=== PATIENT | female | born 1990 | race Caucasian/White ===

== ENCOUNTER 2017-09-22 15:21 | Emergency (ER) | payer OTHER, MEDICAID ==
[2017-09-22 16:02] LABS: ADD MAN DIFF? NO
[2017-09-22 16:05] LABS: WHITE BLOOD COUNT 8.5 10^3/ul (4.8-10.8)
[2017-09-22 16:05] LABS: BASOPHILS % 0.2 % (0.0-2.0); EOSINOPHILS # 0.1 10^3/ul (0.0-0.5); EOSINOPHILS % 0.7 % (0.0-7.0); HEMATOCRIT 38.7 % (37.0-47.0); HEMOGLOBIN 12.5 g/dl (12.0-16.0); LYMPHOCYTES # 2.2 10^3/ul (0.8-2.9); LYMPHOCYTES % 26.1 % (15.0-51.0); MEAN CORPUSCULAR HEMOGLOBIN 26.3 pg (29.0-33.0); MEAN CORPUSCULAR HGB CONC 32.3 g/dl (32.0-37.0); MEAN CORPUSCULAR VOLUME 81.3 fl (82.0-101.0); MEAN PLATELET VOLUME 9.6 fl (7.4-10.4); MONOCYTE # 0.6 10^3/ul (0.3-0.9); MONOCYTES % 6.9 % (0.0-11.0); NEUTROPHIL # 5.6 10^3/ul (1.6-7.5); NEUTROPHILS % 65.9 % (39.0-77.0); PLATELET COUNT 230 10^3/UL (140-415); RED BLOOD COUNT 4.76 10^6/ul (4.20-5.40); RED CELL DISTRIBUTION WIDTH 14.6 % (11.5-14.5)
[2017-09-22 17:05] LABS: ADD UMIC YES; UR ASCORBIC ACID 20 mg/dL (NEGATIVE); UR BACTERIA FEW /HPF (NONE SEEN); UR BILIRUBIN (Dip) NEGATIVE (NEGATIVE); UR BLOOD (Dip) 1+ mg/dL (NEGATIVE); UR CLARITY CLOUDY (CLEAR); UR COLOR YELLOW (YELLOW); UR GLUCOSE (Dip) NEGATIVE (NEGATIVE); UR KETONES (Dip) 2+ mg/dL (NEGATIVE); UR LEUKOCYTE ESTERASE (Dip) 2+ Leu/ul (NEGATIVE); UR MUCUS MANY /HPF (NONE SEEN); UR NITRITE (Dip) NEGATIVE (NEGATIVE); UR NONSQUAMOUS EPITHELIAL CELL 2 /HPF (NONE SEEN); UR RBC 8 /HPF (0-5); UR SPECIFIC GRAVITY (Dip) 1.026 (1.003-1.030); UR SQUAMOUS EPITHELIAL CELL FEW /HPF (FEW); UR TOTAL PROTEIN (Dip) NEGATIVE (NEGATIVE); UR UROBILINOGEN (Dip) NEGATIVE (NEGATIVE); UR WBC 59 /HPF (0-5)
== END 2017-09-22 17:38 | disposition home or self-care (01) ==
LOC: FTE 15:21
DX: O23.42 Unspecified infection of urinary tract in pregnancy, second trimester (principal); R10.2 Pelvic and perineal pain; O99.512 Diseases of the respiratory system complicating pregnancy, second trimester; J45.909 Unspecified asthma, uncomplicated; Z3A.14 14 weeks gestation of pregnancy
CPT/HCPCS: 36415; 76805; 81001; 84702; 85025; 86900; 86901; 99284-25

== ENCOUNTER 2018-02-27 18:24 | Outpatient (CLI) | payer OTHER ==
[2018-02-27 20:29] LABS: ADD UMIC YES; UR ASCORBIC ACID 40 mg/dL (NEGATIVE); UR BILIRUBIN (Dip) NEGATIVE (NEGATIVE); UR BLOOD (Dip) NEGATIVE (NEGATIVE); UR CLARITY CLEAR (CLEAR); UR COLOR YELLOW (YELLOW); UR GLUCOSE (Dip) NEGATIVE (NEGATIVE); UR KETONES (Dip) NEGATIVE (NEGATIVE); UR LEUKOCYTE ESTERASE (Dip) 2+ Leu/ul (NEGATIVE); UR MUCUS FEW /HPF (NONE SEEN); UR NITRITE (Dip) NEGATIVE (NEGATIVE); UR RBC 2 /HPF (0-5); UR SPECIFIC GRAVITY (Dip) 1.019 (1.003-1.030); UR TOTAL PROTEIN (Dip) NEGATIVE (NEGATIVE); UR UROBILINOGEN (Dip) NEGATIVE (NEGATIVE); UR WBC 2 /HPF (0-5)
== END 2018-02-27 21:22 | disposition home or self-care (01) ==
LOC: OBT 18:24 → L-D 18:25 → OBT 21:22
DX: O60.03 Preterm labor without delivery, third trimester (principal); Z3A.36 36 weeks gestation of pregnancy; O34.219 Maternal care for unspecified type scar from previous cesarean delivery
CPT/HCPCS: 81001; 87086

== ENCOUNTER 2018-03-01 13:42 | Inpatient (IN) | payer OTHER ==
[~2018-03-01 13:42] MED LIST: OXYTOCIN 30 UNITS/LR 500 ML BAG IV
[2018-03-01 16:04] LABS: ADD UMIC YES; UR ASCORBIC ACID NEGATIVE (NEGATIVE); UR BILIRUBIN (Dip) NEGATIVE (NEGATIVE); UR BLOOD (Dip) 1+ mg/dL (NEGATIVE); UR CLARITY CLEAR (CLEAR); UR COLOR YELLOW (YELLOW); UR GLUCOSE (Dip) NEGATIVE (NEGATIVE); UR KETONES (Dip) NEGATIVE (NEGATIVE); UR LEUKOCYTE ESTERASE (Dip) TRACE Leu/ul (NEGATIVE); UR MUCUS FEW /HPF (NONE SEEN); UR NITRITE (Dip) NEGATIVE (NEGATIVE); UR RBC 5 /HPF (0-5); UR SPECIFIC GRAVITY (Dip) 1.023 (1.003-1.030); UR SQUAMOUS EPITHELIAL CELL FEW /HPF (FEW); UR TOTAL PROTEIN (Dip) NEGATIVE (NEGATIVE); UR UROBILINOGEN (Dip) NEGATIVE (NEGATIVE); UR WBC 10 /HPF (0-5)
[2018-03-01] MEDS: LACTATED RINGER'S 1,000 ML IV ×2 (16:55→20:03)
[2018-03-01] MEDS: CEFTRIAXONE 1 GM/50 ML (PMX) 50 ML IVPB (17:18)
[2018-03-01] MEDS ORDERED: AMPICILLIN 2 GM/NS (PMX) 100 ML (19:56)
[2018-03-01] MEDS ORDERED: CARBOPROST 250 MCG INJ IM (20:00)
[2018-03-01] MEDS: AMPICILLIN 2 GM/NS (PMX) 100 ML IVPB (20:00)
[2018-03-01] MEDS ORDERED: MISOPROSTOL 200 MCG TAB PR (20:00)
[2018-03-01] MEDS ORDERED: OXYTOCIN 30 UNITS/LR 500 ML IV ×3 (20:00→20:30)
[2018-03-01] MEDS ORDERED: METHYLERGONOVINE 0.2 MG INJ IM (20:00)
[2018-03-01 20:08] LABS: ADD MAN DIFF? NO
[2018-03-01 20:10] LABS: BASOPHILS % 0.2 % (0.0-2.0); EOSINOPHILS % 0.4 % (0.0-7.0); HEMATOCRIT 32.2 % (37.0-47.0); LYMPHOCYTES # 2.1 10^3/ul (0.8-2.9); LYMPHOCYTES % 20.4 % (15.0-51.0); MEAN CORPUSCULAR HEMOGLOBIN 25.1 pg (29.0-33.0); MEAN CORPUSCULAR HGB CONC 31.1 g/dl (32.0-37.0); MEAN CORPUSCULAR VOLUME 80.7 fl (82.0-101.0); MEAN PLATELET VOLUME 9.3 fl (7.4-10.4); MONOCYTE # 0.6 10^3/ul (0.3-0.9); MONOCYTES % 5.9 % (0.0-11.0); NEUTROPHIL # 7.6 10^3/ul (1.6-7.5); NEUTROPHILS % 72.4 % (39.0-77.0); PLATELET COUNT 261 10^3/UL (140-415); RED BLOOD COUNT 3.99 10^6/ul (4.20-5.40); RED CELL DISTRIBUTION WIDTH 14.4 % (11.5-14.5)
[2018-03-01 20:10] LABS: WHITE BLOOD COUNT 10.4 10^3/ul (4.8-10.8)
[2018-03-01 20:30] LABS: INR 0.93; PARTIAL THROMBOPLASTIN TIME 27.6 Sec (23.0-35.0); PROTIME 12.5 Sec (11.9-14.9)
[2018-03-01] MEDS ORDERED: ONDANSETRON 4 MG INJ (20:35)
[2018-03-01] MEDS ORDERED: CITRIC ACID/NA CITRATE 30 ML CUP (20:35)
[2018-03-01] MEDS ORDERED: BUPIVACAINE 0.75%/DEXT (SPINAL) 2 ML INJ (20:53)
[2018-03-01] MEDS ORDERED: morphine SULFATE/PF (10 MG/10 ML) INJ (20:53)
[2018-03-01] MEDS ORDERED: OXYTOCIN 10 UNIT INJ (20:53)
[2018-03-01] MEDS ORDERED: PHENYLephrine (100 MCG/ML) 5ML SYG (20:53)
[2018-03-01 21:04] LABS: HEPATITIS B SURFACE ANTIGEN NEGATIVE (NEGATIVE)
[2018-03-01] MEDS ORDERED: METOCLOPRAMIDE 10 MG INJ (21:12)
[2018-03-01] MEDS ORDERED: DEXAMETHASONE 4 MG/ML 1 ML INJ (21:12)
[2018-03-01] MEDS ORDERED: KETOROLAC 30 MG INJ (21:13)
[2018-03-01] MEDS ORDERED: HYDROCODONE/APAP (5/325) TAB PO (21:30)
[2018-03-01] MEDS ORDERED: ONDANSETRON 4 MG INJ IV (21:30)
[2018-03-01] MEDS ORDERED: morphine 2 MG INJ IV ×2 (21:30)
[2018-03-01] MEDS ORDERED: HYDROmorphONE 0.5 MG/0.5 ML SYG IV ×2 (21:30)
[2018-03-01] MEDS ORDERED: NALBUPHINE HCL (10 MG/1 ML) INJ IV (21:30)
[2018-03-01] MEDS ORDERED: ACETAMINOPHEN 500 MG TAB PO (21:30)
[2018-03-01] MEDS ORDERED: NALOXONE (0.4 MG/ML) INJ IV (21:30)
[2018-03-01] MEDS: ONDANSETRON 4 MG INJ IV (22:38)
[2018-03-01] MEDS: OXYTOCIN 30 UNITS/LR 500 ML IV (22:38)
[2018-03-01] MEDS: CITRIC ACID/NA CITRATE 30 ML CUP PO (22:38)
[2018-03-01] MEDS: DIPHENHYDRAMINE 50 MG INJ IV (23:55)
[2018-03-02] MEDS: LACTATED RINGER'S 1,000 ML IV ×6 (03:46→19:55)
[2018-03-02] MEDS ORDERED: METHYLERGONOVINE 0.2 MG INJ IM (04:00)
[2018-03-02] MEDS ORDERED: ZOLPIDEM 5 MG TAB PO (04:00)
[2018-03-02] MEDS ORDERED: CARBOPROST 250 MCG INJ IM (04:00)
[2018-03-02] MEDS ORDERED: LANOLIN 7 GM TUBE TOP (04:00)
[2018-03-02] MEDS ORDERED: MISOPROSTOL 200 MCG TAB PR (04:00)
[2018-03-02] MEDS: KETOROLAC 30 MG INJ IV ×2 (04:06→17:15)
[2018-03-02] MEDS: OXYTOCIN 30 UNITS/LR 500 ML IV (04:07)
[2018-03-02] MEDS: PRENATAL VITAMIN PO (08:47)
[2018-03-02] MEDS: SENNA/DOCUSATE NA (8.6MG/50MG) TAB PO ×2 (08:47→21:36)
[2018-03-02] MEDS ORDERED: [UNRECOGNIZED DRUG - OTHER] PO (09:00)
[2018-03-02] MEDS ORDERED: ALBUTEROL 0.083% (NEB) 2.5 MG/3 ML AMP HHN (14:30)
[2018-03-02 15:11] LABS: RAPID PLASMA REAGIN NONREACTIVE (NR)
[2018-03-02] MEDS ORDERED: DIPHENHYDRAMINE 50 MG INJ IV (20:55)
[2018-03-02] MEDS ORDERED: ONDANSETRON 4 MG INJ IV (20:55)
[2018-03-02 22:17] LABS: ADD UMIC NO; UR ASCORBIC ACID NEGATIVE (NEGATIVE); UR BILIRUBIN (Dip) NEGATIVE (NEGATIVE); UR BLOOD (Dip) NEGATIVE (NEGATIVE); UR CLARITY CLEAR (CLEAR); UR COLOR YELLOW (YELLOW); UR GLUCOSE (Dip) NEGATIVE (NEGATIVE); UR KETONES (Dip) NEGATIVE (NEGATIVE); UR LEUKOCYTE ESTERASE (Dip) NEGATIVE Leu/ul (NEGATIVE); UR NITRITE (Dip) NEGATIVE (NEGATIVE); UR SPECIFIC GRAVITY (Dip) 1.008 (1.003-1.030); UR TOTAL PROTEIN (Dip) NEGATIVE (NEGATIVE); UR UROBILINOGEN (Dip) NEGATIVE (NEGATIVE)
[2018-03-02] MEDS: IBUPROFEN 600 MG TAB PO (23:57)
[2018-03-03] MEDS: LACTATED RINGER'S 1,000 ML IV ×2 (02:30)
[2018-03-03] MEDS: IBUPROFEN 600 MG TAB PO ×4 (05:35→23:16)
[2018-03-03 06:37] LABS: ADD MAN DIFF? NO
[2018-03-03 06:41] LABS: WHITE BLOOD COUNT 7.8 10^3/ul (4.8-10.8)
[2018-03-03 06:41] LABS: BASOPHILS % 0.3 % (0.0-2.0); EOSINOPHILS % 0.5 % (0.0-7.0); HEMATOCRIT 28.8 % (37.0-47.0); HEMOGLOBIN 8.8 g/dl (12.0-16.0); LYMPHOCYTES # 2.1 10^3/ul (0.8-2.9); LYMPHOCYTES % 26.1 % (15.0-51.0); MEAN CORPUSCULAR HEMOGLOBIN 24.7 pg (29.0-33.0); MEAN CORPUSCULAR HGB CONC 30.6 g/dl (32.0-37.0); MEAN CORPUSCULAR VOLUME 80.9 fl (82.0-101.0); MEAN PLATELET VOLUME 10.3 fl (7.4-10.4); MONOCYTE # 0.6 10^3/ul (0.3-0.9); NEUTROPHIL # 5.1 10^3/ul (1.6-7.5); NEUTROPHILS % 65.3 % (39.0-77.0); PLATELET COUNT 261 10^3/UL (140-415); RED BLOOD COUNT 3.56 10^6/ul (4.20-5.40); RED CELL DISTRIBUTION WIDTH 14.6 % (11.5-14.5)
[2018-03-03] MEDS: SENNA/DOCUSATE NA (8.6MG/50MG) TAB PO ×2 (08:35→20:58)
[2018-03-03] MEDS: PRENATAL VITAMIN PO (08:35)
[2018-03-03] MEDS: OXYCODONE/ACETAMINOPHEN (5/325) TAB PO ×3 (08:35→20:58)
[2018-03-04] MEDS: OXYCODONE/ACETAMINOPHEN (5/325) TAB PO ×3 (01:31→12:08)
[2018-03-04] MEDS: IBUPROFEN 600 MG TAB PO ×2 (05:49→11:08)
[2018-03-04] MEDS: SENNA/DOCUSATE NA (8.6MG/50MG) TAB PO (09:37)
[2018-03-04] MEDS: PRENATAL VITAMIN PO (09:37)
[2018-03-04] MEDS: DIPHTH/TET/ACEL PERTUSS (ADULT) 0.5 ML VIAL IM* (10:46)
[2018-03-04] MEDS ORDERED: MEASLES,MUMPS,RUBELLA VACCINE INJ SC* (15:30)
== END 2018-03-04 16:15 | disposition home or self-care (01) | DRG 766 ==
LOC: OBT 13:42 → PP1 03-02 00:54 → L-D 13:42 → OBT 19:37 → L-D 19:37
PROC: 10D00Z1 Extraction of Products of Conception, Low, Open Approach (ICD-10-PCS; principal; 2018-03-01 20:30)
PROC: 0UB70ZZ Excision of Bilateral Fallopian Tubes, Open Approach (ICD-10-PCS; 2018-03-01 20:30)
DX: O34.219 Maternal care for unspecified type scar from previous cesarean delivery (principal); O99.824 Streptococcus B carrier state complicating childbirth; Z3A.37 37 weeks gestation of pregnancy; Z37.0 Single live birth; Z30.2 Encounter for sterilization; Z23 Encounter for immunization
CPT/HCPCS: 36415; 81001; 81003; 85025; 85610; 85730; 86592; 86850; 86900; 86901; 87086; 87340; 88302; 90715; 96360; 96361; 99464